=== PATIENT | male | born 1950 | race Caucasian/White ===

== ENCOUNTER → 2017-09-19 | Outpatient (CLI) | payer OTHER ==
[~2017-09-19] MED LIST: ASPIRIN EC325 M1 PO; BYSTOLIC 5 MG5 M1 PO; CRESTOR10 MG PO; GLUCOPHAGE500 MG PO; PROSCAR 5MG TABL5 MG PO; TENORMIN25 MG PO; TOPROL XL50 MG PO; TRICOR145 MG PO; VASCEPA1 GM PO
[2017-09-19 08:21] LABS: HEMATOCRIT 35.4 % (42.0-52.0); HEMOGLOBIN 12.9 gm/dL (14.0-18.0); MCH 31.8 pg (26.0-34.0); MCHC 36.3 g/dL (28.0-37.0); MCV 87.8 fL (80.0-100.0); RBC 4.04 mil/uL (4.50-6.00); RDW 19.6 % (10.5-14.5); WBC 9.4 thou/uL (4.0-11.0)
[2017-09-19 08:39] LABS: CREATININE 0.8 mg/dL (0.7-1.3); POTASSIUM 4.8 mmol/L (3.5-5.1)
[2017-09-19 08:45] LABS: ALBUMIN 4.4 g/dL (3.4-5.0); TOTAL BILIRUBIN 1.8 mg/dL (<0.1-1.0)
== END ==
LOC: LABMALL 07:53
PROVIDERS: Internal Medicine Cardiovascular Disease
DX: K80.20 Calculus of gallbladder without cholecystitis without obstruction (principal); I25.84 Coronary atherosclerosis due to calcified coronary lesion; M51.34 Other intervertebral disc degeneration, thoracic region; I48.0 Paroxysmal atrial fibrillation

== ENCOUNTER 2017-09-22 06:51 | Observation (INO) | payer OTHER ==
[2017-09-22] VITALS (8 sets, daily range): BP systolic 122–132; BP diastolic 70–82
[~2017-09-22] VITALS: Ht 177.8 cm; Wt 95.3 kg
--- NOTE | ~2017-09-22 | P ---
[facility] [place] [address] PROCEDURE REPORT Name: JAYLYNIDRIS Laura Room #: 219-P [facility] Renato M.R.#: [id number] Admission: 09/22/17 Attend Phys: Jules Sadler MD Discharge: 09/23/17 Date of : 54 Report #: [id number] THIS REPORT FOR: //name// CC: FAM safia Asaf Glass Jules MUNIZ PREOPERATIVE DIAGNOSIS: Paroxysmal atrial fibrillation. POSTOPERATIVE DIAGNOSIS: Paroxysmal atrial fibrillation. PROCEDURES PERFORMED: 1. AFib ablation, CPT code 56312. 2. 3D mapping, CPT code 78013. 3. Intracardiac echo, CPT code 52724. 4. Pacemaker reprogramming x 2. HISTORY: The patient is a 67-year-old with a history of atrial flutter, status post prior ablation as well as sick sinus syndrome, status post pacemaker implantation with a Medtronic device back in 10/2014. The patient has been having increased AFib burden despite antiarrhythmic drugs and is here for an ablation. ANESTHESIA: The patient underwent general anesthesia with no anesthesia related complications. DESCRIPTION OF PROCEDURE: The patient underwent informed consent. We discussed the details of the procedure including the risk, which include, but not limited to bleeding, vascular damage, cardiac perforation, stroke, AL. He understood these risks and is willing to proceed. As such, he was brought to the EP laboratory in a fasting and sedated state and prepped and draped in a sterile fashion. I obtained access to the right femoral vein x 3, placing an 8-[place], 9-[place] and 7-[place] short sheath using the modified Seldinger technique. Next, under fluoroscopy, I placed a decapolar catheter easily in the coronary sinus and an ice catheter in the right atrium. Prior to the initiation of the procedure, his Medtronic pacemaker was interrogated and was reprogrammed. At baseline, the patient was in an atrial paced rhythm with an atrial rate of 1000 milliseconds, GA interval 230 milliseconds, QRS duration 140 milliseconds, QT interval 472 milliseconds. Next, the patient was systemically heparinized and using an SL1 sheath and a [place] needle, a transseptal was easily performed. Once in the left atrium, I created a 3D geometry of the left atrium. Intracardiac ultrasound was also used to assist with 3D anatomy. Next, the SL1 sheath was exchanged for the cryo sheath and the pulmonary veins were isolated. The left superior pulmonary vein required a total of 5 freezes with evidence of isolation post-ablation. The left inferior pulmonary vein required two 4-minute freezes. The left inferior pulmonary vein was isolated within 28 seconds of the [facility] [address] [place] [address] PROCEDURE REPORT Name: IDRIS DE LA O Room #: 219-P [facility] Renato M.RIssac#: [id number] Admission: 09/22/17 Attend Phys: Jules Sadler MD Discharge: 09/23/17 Date of : 54 Report #: [id number] second freeze. The right superior pulmonary vein required 3 freezes. The first was 240 seconds, the second freeze was 100 seconds as there were not good temperatures and the third freeze was of 140 seconds duration. During the third freeze, the vein isolated within 40 seconds. The right inferior pulmonary vein underwent a 2-minute and 3-minute freeze with evidence of isolation. All veins were re-interrogated and a voltage map was performed showing that there was a nice wide circumferential ablation of the pulmonary veins. Post-ablation, the device was re-interrogated and found to be functioning normally. The patient received systemic protamine. Once the ACT was within acceptable range, catheters and sheaths were pulled, hemostasis obtained and the patient awoke neurologically and hemodynamically intact with no complications. CONCLUSIONS: 1. Successful AFib ablation with isolation of the 4 pulmonary veins. 2. Successful pacemaker reprogramming. By: [id number] Jules Sadler MD /nt
--- NOTE | ~2017-09-22 | D ---
[facility] [place] [address] DISCHARGE SUMMARY Name: JAYLYNIDRIS Sanchez Room #: 219-P [facility] M.R.#: [id number] Admission: 09/22/17 Attend Phys: Jules Sadler MD Discharge: 09/23/17 Date of : 54 Report #: [id number] THIS REPORT FOR: //name// CC: FAM safia Asaf Glass Jules MUNIZ DATE OF SERVICE: 09/23/2017 DISCHARGE DIAGNOSES: 1. Atrial fibrillation. 2. Atrial flutter. 3. Sick sinus syndrome. PROCEDURES PERFORMED: AFib ablation. HISTORY OF PRESENT ILLNESS: The patient is a 67-year-old male with history of paroxysmal atrial fibrillation, status post prior flutter ablation, as well as sick sinus syndrome with a Medtronic pacemaker, who is here for a-fib ablation. The patient underwent successful isolation of the 4 pulmonary veins without complications. HOSPITAL COURSE: The patient was monitored in the CCU overnight. On the day of discharge, the patient was doing well. He denied any chest pain, shortness of breath, PND, orthopnea, presyncope or syncope. PHYSICAL EXAMINATION: HEART: Regular rate and rhythm with no murmurs, rubs, gallops. LUNGS: Clear to auscultation bilaterally. ABDOMEN: Soft, nontender, nondistended with no hepatosplenomegaly. GENITOURINARY: His right groin showed no significant bruising or hematoma. On telemetry, he remained in sinus rhythm overnight. As such, he was deemed stable for discharge home. DISCHARGE MEDICATIONS: He will continue on his same outpatient medications including Pradaxa, flecainide, beta alpesh, and diltiazem. FOLLOWUP: He will follow up in my clinic in 3 months. Discharge instructions were discussed. <ELECTRONICALLY SIGNED> By: Jules Sadler MD 10/03/17 [id number] Jules Sadler MD /nt
[2017-09-22 07:25] LABS: ABSOLUTE NEUTROPHILS 5.6 thou/uL (1.4-8.2); BASOPHILS 0.9 % (0.0-2.0); EOSINOPHILS 1.9 % (0.0-3.0); HEMOGLOBIN 13.5 gm/dL (14.0-18.0); LYMPHOCYTES 23.9 % (24.0-44.0); MCH 31.9 pg (26.0-34.0); MCHC 36.4 g/dL (28.0-37.0); MCV 87.7 fL (80.0-100.0); MONOCYTES 7.1 % (1.0-8.0); PLATELET COUNT 180 thou/uL (150-400); POLYS 66.2 % (36.0-66.0); RBC 4.21 mil/uL (4.50-6.00); RDW 19.3 % (10.5-14.5); WBC 8.4 thou/uL (4.0-11.0)
[2017-09-22 07:37] LABS: APTT 29.7 Seconds (24.5-32.8)
[2017-09-22 07:39] LABS: CALCIUM 9.2 mg/dL (8.5-10.1); CREATININE 0.8 mg/dL (0.7-1.3); POTASSIUM 4.2 mmol/L (3.5-5.1)
[2017-09-22 07:45] LABS: ALBUMIN 4.3 g/dL (3.4-5.0); TOTAL BILIRUBIN 1.4 mg/dL (<0.1-1.0); TOTAL PROTEIN 7.2 g/dL (6.4-8.2)
[2017-09-22] MEDS ORDERED: PRADAXA150 MG PO (07:50)
[2017-09-22] MEDS ORDERED: CARDIZEM CD180 MG PO (07:51)
[2017-09-22] MEDS ORDERED: DIOVAN320 MG PO (07:51)
[2017-09-22] MEDS ORDERED: FLECAINIDE ACET50 M1 PO (07:52)
[2017-09-22] MEDS ORDERED: ERGOCALCIF50000 UNIT PO (07:53)
[2017-09-23 05:11] VITALS: BP 128/73
[2017-09-23 07:36] VITALS: BP 142/86
[2017-09-23 08:36] VITALS: BP 142/86
== END 2017-09-23 11:16 | disposition home or self-care (01) ==
LOC: CATH 06:51 → 2N 06:57 → CATH 07:20 → 2N 09-23 11:16
PROVIDERS: Internal Medicine Cardiovascular Disease
DX: I48.0 Paroxysmal atrial fibrillation (principal); I48.92 Unspecified atrial flutter; I49.5 Sick sinus syndrome; Z95.0 Presence of cardiac pacemaker
CPT/HCPCS: 62110; 62900; 70005

== ENCOUNTER → 2018-10-10 | Outpatient (CLI) | payer OTHER ==
[~2018-10-10] MED LIST changes: +CARDIZEM CD180 MG PO; +DIOVAN320 MG PO; +ERGOCALCIF50000 UNIT PO; +FLECAINIDE ACET50 M1 PO; +PRADAXA150 MG PO
== END ==
LOC: CAT 10:30
DX: Z13.6 Encounter for screening for cardiovascular disorders (principal); I25.10 Atherosclerotic heart disease of native coronary artery without angina pectoris; E78.00 Pure hypercholesterolemia, unspecified

== ENCOUNTER → 2019-08-08 | Outpatient (CLI) | payer OTHER | LOC: SJCVC 11:18 | DX: I48.0 Paroxysmal atrial fibrillation (principal); E78.1 Pure hyperglyceridemia; I10 Essential (primary) hypertension; E78.00 Pure hypercholesterolemia, unspecified; R93.1 Abnormal findings on diagnostic imaging of heart and coronary circulation; R53.83 Other fatigue; R06.02 Shortness of breath; Z95.0 Presence of cardiac pacemaker; Z98.890 Other specified postprocedural states; Z86.79 Personal history of other diseases of the circulatory system ==

== ENCOUNTER → 2019-10-04 | Outpatient (CLI) | payer OTHER | LOC: SJCVCIMAG 09:14 | PROVIDERS: ATTEND Internal Medicine Cardiovascular Disease | DX: I08.0 Rheumatic disorders of both mitral and aortic valves (principal); R06.09 Other forms of dyspnea; R42 Dizziness and giddiness; E78.5 Hyperlipidemia, unspecified; I48.0 Paroxysmal atrial fibrillation; E78.1 Pure hyperglyceridemia; I10 Essential (primary) hypertension; E78.00 Pure hypercholesterolemia, unspecified; R93.1 Abnormal findings on diagnostic imaging of heart and coronary circulation; R53.83 Other fatigue; R06.02 Shortness of breath; Z95.0 Presence of cardiac pacemaker; Z98.890 Other specified postprocedural states; Z86.79 Personal history of other diseases of the circulatory system; Z79.82 Long term (current) use of aspirin; Z79.899 Other long term (current) drug therapy ==

== ENCOUNTER → 2020-10-22 | Outpatient (CLI) | payer OTHER | LOC: SJCVC 10:28 | PROVIDERS: ATTEND Internal Medicine Cardiovascular Disease | DX: R93.1 Abnormal findings on diagnostic imaging of heart and coronary circulation (principal); I10 Essential (primary) hypertension; E78.00 Pure hypercholesterolemia, unspecified; E78.1 Pure hyperglyceridemia; I48.0 Paroxysmal atrial fibrillation; E11.9 Type 2 diabetes mellitus without complications; Z98.890 Other specified postprocedural states; Z86.79 Personal history of other diseases of the circulatory system; Z95.0 Presence of cardiac pacemaker; Z79.82 Long term (current) use of aspirin; Z79.899 Other long term (current) drug therapy; Z82.49 Family history of ischemic heart disease and other diseases of the circulatory system ==